=== PATIENT | male | born 1995 | race Caucasian/White ===

== ENCOUNTER 2017-04-07 21:32 | Emergency (ER) | payer MEDICAID | END 2017-04-07 22:40 | disposition home or self-care (01) | LOC: D.ER 21:32 | DX: M79.604 Pain in right leg (principal) ==

== ENCOUNTER 2017-04-11 12:17 | Emergency (ER) | payer MEDICAID | END 2017-04-11 13:47 | disposition home or self-care (01) | LOC: D.ER 12:17 | DX: T50.905A Adverse effect of unspecified drugs, medicaments and biological substances, initial encounter (principal); Y92.029 Unspecified place in mobile home as the place of occurrence of the external cause; F17.200 Nicotine dependence, unspecified, uncomplicated ==

== ENCOUNTER 2017-04-11 14:16 | Emergency (ER) | payer MEDICAID | END 2017-04-11 17:50 | disposition home or self-care (01) | LOC: D.ER 14:16 | DX: Z03.89 Encounter for observation for other suspected diseases and conditions ruled out (principal); F17.200 Nicotine dependence, unspecified, uncomplicated ==